=== PATIENT | male | born 1970 | race Caucasian/White ===

== ENCOUNTER 2018-03-29 11:44 | Emergency (ER) | payer OTHER, SELFPAY ==
[2018-03-29 11:46] VITALS: BP 147/83; PULSE 65; RESP 18; TEMP 36.3; O2SAT 96; BMI 26.6
--- NOTE | 2018-03-29 12:30 | ED.RN ---
Database states to call Cathryn with a number. RN called this number, no answer, mailbox full. Israel from [facility] called.
--- NOTE | 2018-03-29 12:48 | ED.VISSUMM ---
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 There is a metal bar on a tarp that he was placing over the the truck when it blew back and struck him in his left mouth. Knocking out his left upper #9 and #10 tooth. A partial fracture avulsion of the #11 left upper tooth. There is gum swelling. And lacerations. He denies other injuries. He was not knocked unconscious. This is Worker's Comp. according to the patient. Physical Examination: Middle-aged male. Vital signs are stable. He is afebrile. HEENT exam pupils round reactive light. His upper and lower lips are slightly swollen. There are superficial lacerations to the lip. The left upper lip as a part of the tooth embedded in it. His upper dentition tooth #9 the front tooth has been knocked out. #10 is been knocked out. #11 has a partial fracture and avulsion but I cannot remove it. His jaw is unremarkable is able open and close his mouth. Posterior pharynx is unremarkable. He does have swelling of the gums. Blood work neck nontender. Trachea midline. Lungs clear to auscultation bilaterally. Heart regular rate and rhythm no murmur. Abdomen soft and nontender. She will extremities moves all 4. Neurovascular intact. Nontender. Normal range of motion. Back nontender. Neurologically is awake alert no focal motor deficits. GCS 15. Test Results: None Emergency Department Course and Treatment: I spoke to the oral surgeon eap consultant Dr. Stevens. He has an office in [place] and see the patient down this afternoon. He did want me to write the patient for antibiotics and pain medication. I discussed also with the patient he will call to set up appointment today. Treatment Plan: Follow-up with oral surgeon today. Disposition: Discharge Impression: Acute dental injury with dental avulsion of tooth #9 and #10 partial avulsion fracture of left upper 11. Workers comp injury. This note was generated with wildcraftation software. It may contain incorrect words, spelling, and punctuation that were not noted in review of the chart prior to signing ED Disposition - Plan for ED Patient: Chief Complaint: Dental Referrals: Care Physician,No Primary [Primary Care Provider] -
--- NOTE | 2018-03-29 12:51 | ED.DCSUM_ITS ---
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 There is a metal bar on a tarp that he was placing over the the truck when it blew back and struck him in his left mouth. Knocking out his left upper #9 and #10 tooth. A partial fracture avulsion of the #11 left upper tooth. There is gum swelling. And lacerations. He denies other injuries. He was not knocked unconscious. This is Worker's Comp. according to the patient. Physical Examination: Middle-aged male. Vital signs are stable. He is afebrile. HEENT exam pupils round reactive light. His upper and lower lips are slightly swollen. There are superficial lacerations to the lip. The left upper lip as a part of the tooth embedded in it. His upper dentition tooth #9 the front tooth has been knocked out. #10 is been knocked out. #11 has a partial fracture and avulsion but I cannot remove it. His jaw is unremarkable is able open and close his mouth. Posterior pharynx is unremarkable. He does have swelling of the gums. Blood work neck nontender. Trachea midline. Lungs clear to auscultation bilaterally. Heart regular rate and rhythm no murmur. Abdomen soft and nontender. She will extremities moves all 4. Neurovascular intact. Nontender. Normal range of motion. Back nontender. Neurologically is awake alert no focal motor deficits. GCS 15. Test Results: None Emergency Department Course and Treatment: I spoke to the oral surgeon publicity consultant Dr. Stevens. He has an office in [place] and see the patient down this afternoon. He did want me to write the patient for antibiotics and pain medication. I discussed also with the patient he will call to set up appointment today. Treatment Plan: Follow-up with oral surgeon today. Disposition: Discharge Impression: Acute dental injury with dental avulsion of tooth #9 and #10 partial avulsion fracture of left upper 11. Workers comp injury. This note was generated with OpenEdation software. It may contain incorrect words, spelling, and punctuation that were not noted in review of the chart prior to signing ED Disposition - Plan for ED Patient: Chief Complaint: Dental Referrals: Care Physician,No Primary [Primary Care Provider] -
--- NOTE | 2018-03-29 12:51 | ED.DEP ---
ED Disposition - Plan for ED Patient: Disposition: Home or Assisted Living Chief Complaint: Dental Instructions: Dental Trauma Prescriptions: Hydrocodone/Acetaminophen [Entriken 5-325 Tablet] 1 ea PO Q4H PRN PRN #20 tab PRN Reason: Pain Penicillin Vk [Pen-Vee K , V-Cillin K] 250 mg PO 4X/DAY #20 tab Additional Instructions: Call Dr. Stevens an oral surgeon from [place] and he will see in the office later today. Motrin and limited Entriken for pain. Penicillin for preventing dental infection.
--- NOTE | 2018-03-29 12:56 | DCINST.ED_ITS ---
ED Disposition - Plan for ED Patient: Disposition: Home or Assisted Living Chief Complaint: Dental Instructions: Dental Trauma Prescriptions: Hydrocodone/Acetaminophen [Pensacola 5-325 Tablet] 1 ea PO Q4H PRN PRN #20 tab PRN Reason: Pain Penicillin Vk [Pen-Vee K , V-Cillin K] 250 mg PO 4X/DAY #20 tab Additional Instructions: Call Dr. Stevens an oral surgeon from [place] and he will see in the office later today. Motrin and limited P[place]acola for pain. Penicillin for preventing dental infection.
[2018-03-29 13:14] VITALS: BP 136/80; PULSE 79; RESP 14; O2SAT 99
--- OUTSIDE RECORDS SUMMARY | 2018-05-24 11:00 | XMS RPT_ITS | Summary of Care ---
:1970 Author Organization [facility] Address [address] [place] [address] Care Team Providers Name Role Phone No, Physician Primary Care Provider Unavailable Reason for Visit Reason Comments Follow-up Encounter Details Date Type Department Care Team Description 09/27/2017 Office Visit [facility] Berto Grant Strain of right Orthopedic and MD Damian gastrocnemius muscle, Sports Medicine [address] [facility] subsequent [facility] [address] [facility] [place], [place] (Primary Dx) Medical Office [address] [place] [address] [place] [address] Allergies No Known Allergiesas of this encounter Medications No known medicationsas of this encounter Active Problems Problem Noted Date Strain of right gastrocnemius muscle 07/18/2017 Social History Tobacco Use Types Packs/Day Years Used Date Current Every Day Smoker 1 Smokeless Tobacco: Current User Alcohol Use Drinks/Week oz/Week Comments No Sex Assigned at Date Recorded Not on file as of this encounter Last Filed Vital Signs Vital Sign Reading Time Taken Blood Pressure 137/86 09/27/2017 1:14 PM EDT Pulse 92 09/27/2017 1:14 PM EDT Temperature - - Respiratory Rate - - Oxygen Saturation - - Inhaled Oxygen Concentration - - Weight 79.4 kg (175 lb) 09/27/2017 1:14 PM EDT Height 175.3 cm (5' 9) 09/27/2017 1:14 PM EDT Body Mass Index 25.84 09/27/2017 1:14 PM EDT in this encounter Progress Notes Berto Grant MD - 09/27/2017 1:30 PM EDTFormatting of this note may be different from the original. [facility] [address] (11) [facility] [address] [facility] [address] Berto Ramesh is a 47 y.o. male being seen today, 09/27/17, Chief Complaint Patient presents with ??? Right Lower Leg - Follow-up [chief complaint] leg pain HPI Dictation: [hpi] returns indicating his symptoms have improved to the point where he feels he can return to work still some mild soft tissue swelling Physical Exam Dictation: [PE] tenderness in the calf Assessment and Plan Dictation: [AP] gas previous tear which is seems to be for the most part resolved return to work Sunday return. I have reviewed all relevant histories, medications, allergies, and problem list items with Berto Ramesh during this visit. Review of Systems Constitutional: Negative for appetite change, fatigue and fever. HENT: Negative for sore throat and trouble swallowing. Respiratory: Negative for chest tightness and shortness of breath. Cardiovascular: Negative. Negative for chest pain and palpitations. Gastrointestinal: Negative for nausea and vomiting. Endocrine: Negative. Genitourinary: Negative. Skin: Negative. Allergic/Immunologic: Negative. Neurological: Negative. Negative for light-headedness and headaches. Hematological: Negative. Psychiatric/Behavioral: Negative for agitation and confusion. BP 137/86 Pulse 92 Ht 5' 9 Wt 79.4 kg (175 lb) BMI 25.84 kg/m?? Imaging: No results found. SNOMED CT(R) 1. Strain of right gastrocnemius muscle, subsequent encounter STRAIN OF MUSCLE AND/OR TENDON OF LOWER LEG Return if symptoms worsen or fail to improve. Berto Grant MDin this encounter Plan of Treatment Health Maintenance Due Date Last Done Comments TETANUS EVERY 10 YR 1970 SEQUENTIAL INFLUENZA VACCINE (Season Ended) 2017 as of this encounter Visit Diagnoses Diagnosis Strain of right gastrocnemius muscle, subsequent encounter - Primary
--- OUTSIDE RECORDS SUMMARY | 2018-05-24 11:00 | XMS RPT_ITS ---
:1970 Author Organization [facility] Care Team Providers Name Role Phone PHYSICIAN, NONE Primary Care Unavailable BARRETT LIZAMA Attending Unavailable AULTWORKS, AULTWORKS Referring Unavailable JEAN SERRA Attending Unavailable JEAN SERRA Referring Unavailable NO, PHYSICIAN Primary Care Unavailable VIAU, FREDDY SIMMONS Attending Unavailable NO, PHYSICIAN Primary Care Unavailable VIAU, FREDDY SIMMONS Attending Unavailable NO, PHYSICIAN Primary Care Unavailable VIAU, FREDDY SIMMONS Attending Unavailable NO, PHYSICIAN Primary Care Unavailable VIAU, FREDDY SIMMONS Attending Unavailable NO, PHYSICIAN Primary Care Unavailable VIAU, FREDDY SIMMONS Attending Unavailable NO, PHYSICIAN Primary Care Unavailable VIAU, FREDDY SIMMONS Attending Unavailable NO, PHYSICIAN Primary Care Unavailable VIAU, FREDDY SIMMONS Attending Unavailable NO, PHYSICIAN Primary Care Unavailable Jean Serra Admitting Unavailable Jean Serra Attending Unavailable Peter Pinto Attending Unavailable Primay Care Physicia, No Primary Care Unavailable PROBLEMS PROBLEMS DATE TYPE CONDITION / CODE ATTENDING STATUS SOURCE 04/04/2018 Unknown S09.93XA - Peter Pinto Active [place] Unspecified Community injury of face, Hospital initial encounter Repository / S09.93XA(ICD-10) 08/03/2017 Admitting Strain of other FREDDY MARTÍNEZ Active [facility] diagnosis muscle(s) and IRIS Anaya Repository tendon(s) of posterior muscle group at lower leg level, right leg, subsequent encounter / S86.111D(ICD-10) 07/18/2017 Admitting Unknown / FREDDY MARTÍNEZ Active [facility] diagnosis UNK(Unknown) IRIS Three Repository 07/06/2017 Admitting Strain of other PONCE, Active [facility] diagnosis muscle(s) and JEAN JO Three Repository tendon(s) of posterior muscle group at lower leg level, right leg, initial encounter / S86.111A(ICD-10) PROCEDURES PROCEDURES No Procedure Records FoundRESULTS RESULTS EMERGENCY DEPARTMENT Observed: 03/29/2018 Status: F Source: GATE SUMMARY 4:17 PM [facility] Medical Records Department [address] [place] [address] Emergency Department Summary 03/29/18 1248 MR#: [id number] Acct: [id number] Name: FREDDY RUIZ Kajal Rep #: [id number] : 1970 48 From: Peter Pinto MD PCP: Care Physician, No Primary Status: DEP ER - ER Visit Summary Date of Service: 03/29/18 Chief Complaint: Dental injury History of Present Illness: 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 There is a metal bar on a tarp that he was placing over the the truck when it blew back and struck him in his left mouth. Knocking out his left upper #9 and #10 tooth. A partial fracture avulsion of the #11 left upper tooth. There is gum swelling. And lacerations. He denies other injuries. He was not knocked unconscious. This is Worker's Comp. according to the patient. Physical Examination: Middle-aged male. Vital signs are stable. He is afebrile. HEENT exam pupils round reactive light. His upper and lower lips are slightly swollen. There are superficial lacerations to the lip. The left upper lip as a part of the tooth embedded in it. His upper dentition tooth #9 the front tooth has been knocked out. #10 is been knocked out. #11 has a partial fracture and avulsion but I cannot remove it. His jaw is unremarkable is able open and close his mouth. Posterior pharynx is unremarkable. He does have swelling of the gums. Blood work neck nontender. Trachea midline. Lungs clear to auscultation bilaterally. Heart regular rate and rhythm no murmur. Abdomen soft and nontender. She will extremities moves all 4. Neurovascular intact. Nontender. Normal range of motion. Back nontender. Neurologically is awake alert no focal motor deficits. GCS 15. Test Results: None Emergency Department Course and Treatment: I spoke to the oral surgeon control and recovery combat rescue Dr. Stevens. He has an office in [place] and see the patient down this afternoon. He did want me to write the patient for antibiotics and pain medication. I discussed also with the patient he will call to set up appointment today. Treatment Plan: Follow-up with oral surgeon today. Disposition: Discharge Impression: Acute dental injury with dental avulsion of tooth #9 and #10 partial avulsion fracture of left upper 11. Workers comp injury. This note was generated with [employer] dictation software. It may contain incorrect words, spelling, and punctuation that were not noted in review of the chart prior to signing ED Disposition - Plan for ED Patient: Chief Complaint: Dental Referrals: Care Physician,No Primary [Primary Care Provider] - What to do if you have Problems For any increased pain, shortness of breath, bleeding, nausea or vomiting, chest pain, or any unexpected problems, contact your Primary Care Provider. Call [facility] ([phone]) or report to the closest Emergency Room. Call 911 if necessary. 03/29/18 1617 <Electronically signed by Peter Pinto MD> Date Peter Pinto MD Cosigner Signature (If Indicated): Date CC: No Primary Care Physician DISCHARGE INSTRUCTION Observed: 03/29/2018 Status: F Source: SMAM 4:17 PM [facility] Medical Records Department [address] [place] [address] Discharge Instruction 03/29/18 1251 MR#: [id number] Acct: [id number] Name: FREDDY RUIZ Rep #: [id number] : 1970 48 From: Peter Pinto MD PCP: Care Physician, No Primary Status: DEP ER ED Disposition - Plan for ED Patient: Disposition: Home or Assisted Living Chief Complaint: Dental Instructions: Dental Trauma Prescriptions: Hydrocodone/Acetaminophen [Secor 5-325 Tablet] 1 ea PO Q4H PRN PRN #20 tab PRN Reason: Pain Penicillin Vk [Pen-Vee K , V-Cillin K] 250 mg PO 4X/DAY #20 tab Additional Instructions: Call Dr. Stevens an oral surgeon from [place] and he will see in the office later today. Motrin and limited Secor for pain. Penicillin for preventing dental infection. What to do if you have Problems For any increased pain, shortness of breath, bleeding, nausea or vomiting, chest pain, or any unexpected problems, contact your Primary Care Provider. Call [facility] ([phone]) or report to the closest Emergency Room. Call 911 if necessary. 03/29/18 1617 <Electronically signed by Peter Pinto MD> Date Peter Pinto MD Cosigner Signature (If Indicated): Date CC: No Primary Care Physician DUPLEX VENOUS Observed: 07/06/2017 Status: F Source: [facility] LEG RIGHT 2:58 PM THREE REPOSITORY Non-Invasive Vascular Patient: JOSEPH HAYES Med Rec#: [id number] (Age): 1970(47y) Study Date: 07/06/2017 Room#: Type: Sex: M Reading: Casey Coker MD, RPVI Reading: MO Referring: JEAN SERRA JO Camera Tuning Engineer: Lisa Mitchell, RVT, RDMS Procedure Info: 34204 Study Quality: Lower Venous Duplex: adequate Diagnosis: S86.111A Strain of other muscle(s) and tendon(s) of posterior muscle group at lower leg level, right leg, initial encounter M79.661 Pain in right lower leg Lower Venous Duplex (Limb pain 729.5 ) Conclusions No evidence of deep or superficial vein thrombosis in the right lower extremity. Incidental note of fluid collection with no color flow noted in the proximal to mid calf which could be due to recent muscle strain. The procedure was explained to the patient. The patient voiced understanding. Finding Grids Right Duplex Exam Spont Phasic External Iliac Y Y Common Femoral Y Y Proximal Profunda Y Y Proximal Femoral Y Y Mid Femoral Y Y Distal Femoral Y Y Popliteal Y Y Posterior Tibial Y Y Peroneal Y Y Gastrocnemius _ _ Great Saphenous Y Y Small Saphenous _ _ Augment Color Filling Compressibility External Iliac Y Y Y Common Femoral Y Y Y Proximal Profunda Y Y Y Proximal Femoral Y Y Y Mid Femoral Y Y Y Distal Femoral Y Y Y Popliteal Y Y Y Posterior Tibial Y Y Y Peroneal Y Y Y Gastrocnemius _ _ Y Great Saphenous Y Y Y Small Saphenous _ _ Y Celestin --------- Y = Yes Left Duplex Exam Spont Phasic External Iliac Y Y Common Femoral Y Y Augment Color Filling Compressibility External Iliac Y Y Y Common Femoral Y Y Y Celestin --------- Y = Yes Electronically signed at 07/06/2017 14:58:53 by: Casey Coker MD, RPVI ALLERGIES ALLERGIES DATE TYPE / CODE NAME / CODE REACTION SEVERITY SOURCE 03/29/2018 Drug No Known Unknown [facility] Allergy/416 Allergies/S27331 [facility] 343713(SNOM 0388(RXNORM) Repository ED CT) Drug NO KNOWN [facility] Class/04303 ALLERGIES Repository 1003(SNOMED CT) ENCOUNTERS ENCOUNTERS ADMIT/DISCHARGE ACCOUNT NUMBER ADMITTING ENCOUNTER LOCATION SOURCE CLASS 03/29/2018/03/29/20 [id number] Emergency [address] ding:ED Repository 09/27/2017/09/28/19 [id number] Ambulatory Building:[place] [address] ORTHOGLESSNY Three R Repository 09/20/2017 [id number] Ambulatory Building:[facility] Three SSNER Repository 09/13/2017/09/14/19 [id number] Ambulatory Building:[place] [address] ORTHOGLESSNE Three R Repository 08/29/2017/08/30/19 [id number] Ambulatory Building:[place] [address] ORTH[address]ESSNE Three R Repository 08/09/2017 [id number] Ambulatory Building:[facility] Three SSNER Repository 08/03/2017/08/04/19 [id number] Ambulatory Building:[place] [address] ORTHOGLESSNE Three R Repository 07/18/2017/07/19/19 [id number] Ambulatory Building:[place] [address] ORTHO[address]ESS[address] Three R Repository 07/06/2017/07/07/19 [id number] Ambulatory Building:[place] [address] K Three Repository 07/06/2017 [id number] [place], Ambulatory [facility] Repository 07/04/2017/07/05/19 [id number] Emergency ABuilding:ER [address] Repository PAYERS PAYERS ENCOUNTER GUARANTOR PAYER SUBSCRIBER SOURCE 03/29/2018 FREDDY Rdz Primary FREDDY Rdz [place] [id number] Insurance:RYDERPolicy STARNERDOB: Community [place] Number: [id number], [place] [id number] Repository [address]Woh: (760) Date: [facility] [phone] () [place], [place] [address]GO: 03/29/2018 Secondary Insurance:SELF NOT GIVENUNK [place] PAY INSURANCEPolicy Community Number: Effective Hospital Date:2018-03-29 Repository 09/27/2017 [id number] [facility] -: Insurance:WORKER'S STARNERDOB: Three COMPPolicy Number: [id number] Repository [place] [id number] [address] [place], [place] Date:2188-43-40[place], [place] [address]Ubq: [phone], [place] [address]Yrq: () [phone]: [phone] () 09/20/2017 [id number] [facility] -: Insurance:WORKER'S STARNERDOB: Three COMPPolicy Number: [id number] Repository [place] [id number] [address] [place], [place] Date:2341-09-10FTCO[place], [place] [address]Gaz: [phone], [place] [address]Ovm: () [phone]: [phone] () 09/13/2017 [id number] Primary FREDDY [facility] -: Insurance:WORKER'S STARNERDOB: Three COMPPolicy Number: [id number] Repository [place] [id number] [address] [place], [place] Date:6750-15-81RL [facility] [place], [place] [address]Uta: [phone], [place] [address]Pmh: (HP) [phone]: [phone] (HP) 08/29/2017 [id number] [facility] -: Insurance:WORKER'S STARNERDOB: Three COMPPolicy Number: [id number] Repository [place] [id number] 8 [facility] [place] Date:7112-68-69QH [place], [place] [address]Xba: [phone], [place] [address]Anj: (HP) [phone]: [phone] (HP) 08/09/2017 [id number] [facility] -: Insurance:WORKER'S STARNERDOB: Three COMPPolicy Number: [id number] Repository [place] [id number] [address] [facility] [place] Date:1218-51-51RF [place], [place] [address]Dte: [phone], [place] [address]Jjr: (HP) [phone]: [phone] (HP) 08/03/2017 [id number] [facility] -: Insurance:WORKER'S STARNERDOB: Three COMPPolicy Number: [id number] Repository [facility] [id number] 8 [facility], [place] Date:[place], [place] [address]Kvg: [phone], [place] [address]Vud: (HP) [phone]: [phone] (HP) 08/03/2017 Secondary [facility] Insurance:WORKER'S STARNERDOB: Three COMPPolicy Number: [id number] [id number] [address] [place] Date:[place], [place] [address]ORNGEKZYL, [place] [address]Rbk: [phone]: [phone] (HP) 07/18/2017 [id number] Primary [facility] -: Insurance:WORKER'S STARNERDOB: Three COMPPolicy Number: [id number] [facility] [id number] [address] [place], [place] Date:9109-24-52[place]ICO[place], [place] [address]Dyj: [phone], [place] [address]Mlf: () [phone]: [phone] (HP) 07/06/2017 [id number] Primary [facility] -: Insurance:WORKER'S STARNERDOB: Three COMPPolicy Number: [id number] [id number] [address] [place], [place] Date: - 6920-63-21JE [place], [place] [address]Kkt: [phone], [place] [address]Vxa: (HP) [phone]: [phone] (HP) 07/06/2017 Primary Insurance:[facility] Hospital[facility] STARNERDOB: [place] and Number: [id number] [place] [id number] 8 [facility] Date:Plan Name:[place], [place] [address]ository [address] [address]Oylq [facility] [address]Qqt: ([phone]) [address], [place] [phone] () [address]WC: 07/04/2017 CASSANDRA Primary Insurance:[facility] STARNERDOB: Workers STARNERDOB: [facility] [id number] CompensationPolmethodist jennie edmundson [id number] Repository [place] Number: [address] [place] [place], [place] [id number] [place] [address]~GREGORIO_JULIET Date:2016-11-11Tel: [phone]@[employer] [phone] Name:[facility] [id number] Tel: (101) [id number] [place] [address] (HP) () [address]HU: [phone] (WP) 07/04/2017 Secondary [facility] Insurance:DALTON STARNERDOB: [place] [id number] [id number] Repository Number: Lacy [place] [id number] RDLLOYDAR[place], [place] Date:2017-07-04Tel: [phone] Name:[facility] [phone] [place] [address] ()Tel: [phone]: [phone] (WP)
--- OUTSIDE RECORDS SUMMARY | 2018-05-24 11:00 | XMS RPT_ITS | Summary of Care ---
:1970 Author Organization [facility] Address [address] [place] [address] Care Team Providers Name Role Phone No, Physician Primary Care Provider Unavailable Reason for Visit Reason Comments Pain Follow-up Encounter Details Date Type Department Care Team Description 08/29/2017 Office Visit [facility] Berto Grant Strain of right Orthopedic and MD Damian gastrocnemius muscle, Sports Medicine [address] subsequent encounter [address] [place], [place] (Primary Dx) Medical Office [address] [place] [address] [place] [address] Allergies No Known Allergiesas of [...] Vital Sign Reading Time Taken Blood Pressure 132/80 08/29/2017 11:29 AM EDT Pulse 82 08/29/2017 11:29 AM EDT Temperature - - Respiratory Rate 20 08/29/2017 11:29 AM EDT Oxygen Saturation - - Inhaled Oxygen Concentration - - Weight 79.4 kg (175 lb) 08/29/2017 11:29 AM EDT Height 175.3 cm (5' 9) 08/29/2017 11:29 AM EDT Body Mass Index 25.84 08/29/2017 11:29 AM EDT in this encounter Progress Notes Berto Grant MD - 08/29/2017 11:30 AM EDTFormatting of this note may be different from the original. [facility] [address] (11) [facility] [address] [facility] [address] Berto Ramesh is a 47 y.o. male being seen today, 08/29/17, Chief Complaint Patient presents with ??? Right Leg - Pain, Follow-up [chief complaint] right calf pain HPI Dictation: [hpi] man is improving comes in for today's visit with a mild limp no longer using crutches he said 2 weeks of therapy with improvement Physical Exam Dictation: [PE] multiple swelling and tenderness involving the gastrocnemius Assessment and Plan Dictation: [AP] proving status post muscle strain continue therapy 2 more weeks at which point most likely willbe able to return to work I will see him at that time I have reviewed all relevant histories, medications, [...] Psychiatric/Behavioral: Negative for agitation and confusion. BP 132/80 Pulse 82 Resp (!) 20 Ht 5' 9 Wt 79.4 kg (175 lb) BMI 25.84 kg/m?? Imaging: No results found. SNOMED CT(R) 1. Strain of right gastrocnemius muscle, subsequent encounter STRAIN OF MUSCLE AND/OR TENDON OF LOWER LEG No Follow-up on file. Berto Grant MDin this encounter Plan of Treatment Upcoming Encounters Date Type Specialty Care Team Description 09/13/2017 Office Visit Orthopedic Surgery Berto Grant MD [address] [place] [address] [phone] Health Maintenance Due Date Last Done Comments TETANUS EVERY 10 YR 1970 SEQUENTIAL INFLUENZA VACCINE (Season Ended) 2017 as of this encounter Visit Diagnoses Diagnosis Strain of right gastrocnemius muscle, subsequent encounter - Primary
--- OUTSIDE RECORDS SUMMARY | 2018-05-24 11:00 | XMS RPT_ITS | Summary of Care ---
:1970 Author Organization [facility] Address [address] [place] [address] Care Team Providers Name Role Phone No, Physician Primary Care Provider Unavailable Reason for Visit Reason Comments Follow-up Follow-up Pain Encounter Details Date Type Department Care Team Description 09/13/2017 Office Visit [facility] Berto Grant Strain of right Orthopedic and MD Damian gastrocnemius muscle, Sports [facility] [address] [facility] [place] [place] [facility] Medical Office [address] [place] [address] [place] [address] Allergies No Known Allergiesas of [...] Vital Sign Reading Time Taken Blood Pressure 131/92 09/13/2017 11:15 AM EDT Pulse 79 09/13/2017 11:15 AM EDT Temperature - - Respiratory Rate - - Oxygen Saturation - - Inhaled Oxygen Concentration - - Weight 79.4 kg (175 lb) 09/13/2017 11:15 AM EDT Height 175.3 cm (5' 9) 09/13/2017 11:15 AM EDT Body Mass Index 25.84 09/13/2017 11:15 AM EDT in this encounter Progress Notes Berto Grant MD - 09/13/2017 11:28 AM EDTFormatting of this note may be different from the original. [facility] [address] (11) [facility] [address] [facility] [address] Berto Ramesh is a 47 y.o. male being seen today, 09/13/17, Chief Complaint Patient presents with ??? Right Leg - Follow-up, Pain ??? Follow-up [chief complaint] right leg pain HPI Dictation: [hpi] reports substantial improvement with physical therapy therapist recommends 2 more weeks of treatment however Physical Exam Dictation: [PE] walks in today without abnormal gait that he is not ambulatory aids still mild swelling and tenderness Assessment and Plan Dictation: [AP] solving muscle tear gastrocnemius plan 2 weeks of physical therapy at which point anticipated return to work I have reviewed all relevant histories, medications, [...] Psychiatric/Behavioral: Negative for agitation and confusion. BP (!) 131/92 Pulse 79 Ht 5' 9 Wt 79.4 kg (175 lb) BMI 25.84 kg/m?? Imaging: No results found. SNOMED CT(R) 1. Strain of right gastrocnemius muscle, subsequent encounter STRAIN OF MUSCLE AND/OR TENDON OF LOWER LEG Return in about 2 weeks (around 09/27/2017). Berto Grant MDin this encounter Plan of Treatment Upcoming Encounters Date Type Specialty Care Team Description 09/27/2017 Office Visit Orthopedic Surgery Berto Grant MD [address] [place] [address] [phone] Health Maintenance Due Date Last Done Comments TETANUS EVERY 10 YR 1970 SEQUENTIAL INFLUENZA VACCINE (Season Ended) 2017 as of this encounter Visit Diagnoses Diagnosis Strain of right gastrocnemius muscle, subsequent encounter - Primary
--- OUTSIDE RECORDS SUMMARY | 2018-05-24 11:00 | XMS RPT_ITS | Summary of Care ---
:1970 Author Organization [facility] Address [address] [place] [address] Care Team Providers Name Role Phone No, Physician Primary Care Provider Unavailable Reason for Visit Reason Comments Pain Injury Encounter Details Date Type Department Care Team Description 07/18/2017 Office Visit [facility] Berto Grant Strain of right Orthopedic and MD Damian gastrocnemius muscle, Sports Medicine [address] initial encounter [address] [place], [place] (Primary Dx) Medical Office [address] [place] [address] [place] [address] Allergies No Known Allergiesas of this encounter Medications No known medicationsas of this encounter Active Problems Problem Noted Date Strain of right gastrocnemius muscle 07/18/2017 Social History Tobacco Use Types Packs/Day Years Used Date Current Every Day Smoker 1 Smokeless Tobacco: Never Used Alcohol Use Drinks/Week oz/Week Comments No Sex Assigned at Date Recorded Not on file as of this encounter Last Filed Vital Signs Vital Sign Reading Time Taken Blood Pressure 138/90 07/18/2017 10:17 AM EDT Pulse 77 07/18/2017 10:17 AM EDT Temperature - - Respiratory Rate - - Oxygen Saturation - - Inhaled Oxygen Concentration - - Weight 79.4 kg (175 lb) 07/18/2017 10:17 AM EDT Height 175.3 cm (5' 9) 07/18/2017 10:17 AM EDT Body Mass Index 25.84 07/18/2017 10:17 AM EDT in this encounter Progress Notes Berto Grant MD - 07/18/2017 11:50 AM EDTFormatting of this note may be different from the original. [facility] [address] (11) [facility] [address] [facility] [address] Berto Ramesh is a 47 y.o. male being seen today, 07/18/17, Chief Complaint Patient presents with ??? Left Lower Leg - Pain, Injury [chief complaint] pain and swelling left leg calf HPI Dictation: [hpi] indicates approximately 2 weeks ago he was putting a TURP on a trailer it was stuck and in thecourse of trying to free up the tarp he felt a sudden pop or snap in the posterior aspect of his right calf pain and swelling subsequent. He has difficulty with ambulation is using crutches he indicates he has difficulty to drive because of the right leg pain Physical Exam Dictation: [PE] is marked calf swelling tenderness pain along the posterior medial aspect of the gastrocnemius Achilles tendon is intact Assessment and Plan Dictation: [AP] rupture medial head gastrocnemius muscle plan conservative treatment. Is tolerated ice and elevation physical therapy, for 2 weeks because his difficulty to drive see him back in 2 weeks for reevaluation I have reviewed all relevant histories, medications, [...] Negative for agitation and confusion. BP (!) 138/90 (BP Location: Right arm, Patient Position: Sitting, BP Cuff Size: Adult) Pulse 77 Ht 5' 9 Wt 79.4 kg (175 lb) BMI 25.84 kg/m?? Imaging: No results found. SNOMED CT(R) 1. Strain of right gastrocnemius muscle, initial encounter STRAIN OF MUSCLE AND/OR TENDON OF LOWER LEG Return in about 2 weeks (around 08/01/2017). Berto Grant MDin this encounter Plan of Treatment Upcoming Encounters Date Type Specialty Care Team Description 08/03/2017 Office Visit Orthopedic Surgery Berto Grant MD [address] [place] [address] [phone] Health Maintenance Due Date Last Done Comments TETANUS EVERY 10 YR 1970 SEQUENTIAL INFLUENZA VACCINE (#1) 2016 as of this encounter Visit Diagnoses Diagnosis Strain of right gastrocnemius muscle, initial encounter - Primary Insurance Payer Benefit Plan / Group Subscriber ID Type Phone Address [employer] [facility] [employer] EMPLOYER* xxxxxxxxx Guarantor Name Account Type Relation to Date of Phone Billing Address Patient [id number] Workers Comp Self 1970 Home: [id number] [phone] [place] [phone] as of this encounter
== END 2018-03-29 13:15 | disposition home or self-care (01) ==
PROVIDERS: Emergency Provider Emergency Medicine
DX: S02.5XXA Fracture of tooth (traumatic), initial encounter for closed fracture (principal); S03.2XXA Dislocation of tooth, initial encounter; S01.511A Laceration without foreign body of lip, initial encounter; R40.2410 Glasgow coma scale score 13-15, unspecified time; W22.8XXA Striking against or struck by other objects, initial encounter; Y93.9 Activity, unspecified; Y92.9 Unspecified place or not applicable; Z72.0 Tobacco use
CPT/HCPCS: 99284